=== PATIENT | male | born 1970 ===

== ENCOUNTER 2019-05-20 07:59 | Observation (INO) ==
[2019-05-20] MEDS ORDERED: levoFLOXacin 500 MG/100 ML 500 MG/100 ML BAG IVPB ONE (08:31)
[2019-05-20] MEDS ORDERED: Acetaminophen IV 1,000 MG/100 ML INFUS..BTL IVPB ONE (08:32)
[2019-05-20] MEDS ORDERED: Ringers Solution, Lactated 1,000 ML IVC SCH (08:45)
[2019-05-20] MEDS ORDERED: Albuterol 2.5 MG/3 ML NEBULIZER IH PRN (08:45)
[2019-05-20] MEDS ORDERED: *HR* FentaNYL (PF) 100 MCG/2 ML VIAL ONE (09:58)
[2019-05-20] MEDS ORDERED: *HR* Midazolam HCl 2 MG/2 ML VIAL ONE (09:59)
[2019-05-20] MEDS ORDERED: *HR* Propofol 200 MG/20 ML VIAL IVP ONE (09:59)
[2019-05-20] MEDS ORDERED: Lidocaine -MPF 2% 2 ML VIAL ONE (10:00)
[2019-05-20] MEDS ORDERED: Dexamethasone 4 MG/ML VIAL ONE (10:02)
[2019-05-20] MEDS ORDERED: Ondansetron 4 MG/2 ML VIAL ONE ×2 (10:02→10:10)
[2019-05-20] MEDS ORDERED: Isovue-300 50ML VIAL ONE (10:28)
[2019-05-20] MEDS ORDERED: *HR* HYDROcodone/Acet 5/325 mg TABLET PO PRN ×2 (11:06→16:38)
[2019-05-20] MEDS ORDERED: *HR* Promethazine 25 MG/ML VIAL IVP PRN ×2 (12:48→16:38)
[2019-05-20] MEDS ORDERED: *HR* Promethazine 25 MG/ML VIAL ONE (12:57)
[2019-05-20] MEDS: *HR* HYDROmorphone (PF) 1 MG/ML SYRINGE IVP PRN ×2 (13:38→13:59)
[2019-05-20] MEDS ORDERED: *HR* Belladonna Alkaloids/Opium 30 MG RECTAL SUPPOSITORY RC STA (14:21)
[2019-05-20] MEDS ORDERED: *HR* HYDROmorphone (PF) 1 MG/ML SYRINGE IVP PRN (14:27)
[2019-05-20] MEDS ORDERED: Hyoscyamine SL 0.125 MG TAB.SUBL SL PRN (16:38)
[2019-05-20] MEDS ORDERED: Naloxone 0.4 MG/ML INJ IVP PRN (16:38)
[2019-05-20] MEDS ORDERED: *HR* Belladonna Alkaloids/Opium 60 MG RECTAL SUPPOSITORY RC PRN (16:38)
[2019-05-20] MEDS: 0.9 % Sodium Chloride 1,000 ML IVC SCH (17:31)
[2019-05-20] MEDS: Ketorolac 30 MG/ML VIAL IVP SCH ×2 (17:40→23:50)
[2019-05-21] MEDS: 0.9 % Sodium Chloride 1,000 ML IVC SCH ×2 (02:30→11:02)
[2019-05-21] MEDS: Ketorolac 30 MG/ML VIAL IVP SCH ×2 (05:37→11:44)
[2019-05-21 07:25] VITALS: BP 104/62
[2019-05-21] MEDS ORDERED: Potassium Citrate 10 MEQ TABLET.ER PO SCH (09:00)
[2019-05-24 11:39] LABS: Calculi Mass 29 mg
== END 2019-05-21 12:02 | disposition home or self-care (01) ==
LOC: SAMDAY 07:59 → 3ANU 07:59
PROVIDERS: ADMIT Urology; ATTEND Urology